=== PATIENT | male | born 1940 | race Caucasian/White ===

== ENCOUNTER → 2023-04-10 | Outpatient (CLI) | payer OTHER ==
[~2023-04-10] MED LIST: ATOR40TA PO; ELIQUIS2.5 MG PO; JARDIANCE25 MG PO; LOSA25 PO; METF500 PO; METO100ER PO; MULVITA PO; POTA10T PO; TORS10 PO
[2023-04-10 13:46] LABS: Protein, Urine Quantitative <5.0 mg/dL (0.0-11.9)
== END ==
LOC: LAB SHORT 11:08 → LAB 11:08
PROVIDERS: Internal Medicine Nephrology
DX: N18.30 Chronic kidney disease, stage 3 unspecified (principal); N25.81 Secondary hyperparathyroidism of renal origin; E55.9 Vitamin D deficiency, unspecified; E78.00 Pure hypercholesterolemia, unspecified; R76.9 Abnormal immunological finding in serum, unspecified; R94.5 Abnormal results of liver function studies; R94.6 Abnormal results of thyroid function studies
CPT/HCPCS: 82043; 82570; 84156

== ENCOUNTER 2024-04-30 07:24 | Day surgery (SDC) | payer OTHER ==
[~2024-04-30] VITALS: Ht 185.4 cm; Wt 118.8 kg
[2024-04-30] VITALS (8 sets, daily range): BP systolic 107–158; BP diastolic 59–133
[~2024-04-30 07:24] MED LIST changes: +ACET500 PO; +TURMERIC500 M2 PO
[2024-04-30] MEDS ORDERED: ELIQUIS5 M2 PO (07:51)
[2024-04-30] MEDS ORDERED: ATOR20 PO (07:52)
[2024-04-30] MEDS ORDERED: OZEMPIC1 MG/0.72 SC (07:59)
[2024-04-30] MEDS ORDERED: BELSOMRA10 MG PO (08:01)
[2024-04-30] MEDS ORDERED: Carvedilol12.5 MG PO (08:01)
[2024-04-30] MEDS ORDERED: INSULANI SC (08:02)
[2024-04-30] MEDS ORDERED: NS 1,000 ML IV ONE ×2 (08:05→08:37)
[2024-04-30] MEDS ORDERED: Heparin Sodium 1000 Units/ML 10ML MDV ONE ×2 (08:05→08:37)
[2024-04-30] MEDS ORDERED: NS 250 ML IV ONE (08:05)
[2024-04-30] MEDS ORDERED: Verapamil HCL 2.5 MG/ML 2ML Injection ONE (08:05)
[2024-04-30] MEDS ORDERED: Nitroglycerin 2 MG/20 ML BTL ONE (08:06)
[2024-04-30] MEDS ORDERED: FentaNYL Citrate 50 MCG/ML 2 ML Injection ONE (08:37)
[2024-04-30] MEDS ORDERED: Midazolam HCl 1MG / ML 2ML Vial ONE (08:37)
--- NOTE | 2024-04-30 10:20 | NUR ---
pt back to recovery from lab. pt a&ox4. l radial site soft and non-tender per pt. no bleeding noted. pt given coffee by chloe palma.
[2024-04-30] MEDS ORDERED: BUME1 PO (10:25)
--- NOTE | 2024-04-30 10:44 | NUR ---
PT GIVEN FOOD BY DONIS DAMON. SCRIPT FAXED TO [facility].
--- NOTE | 2024-04-30 10:47 | NUR ---
DR WARD AT BEDSIDE DISCUSSING PROCEDURE AND FUTURE PLAN OF CARE W/ PT AND PTs DAUGHTER.
--- NOTE | 2024-04-30 11:14 | NUR ---
l radial site soft and non-tender per pt. no bleeding noted. brachial site soft and non-tender per pt. no bleeding noted.
--- NOTE | 2024-04-30 11:25 | NUR ---
2cc removed from tr band. site soft and non-tender per pt. no bleeding noted.
--- NOTE | 2024-04-30 11:36 | NUR ---
2cc removed from tr band. site soft and non-tender per pt. no blleding noted. brachial site soft and non-tender per pt. no bleeding ntoed.
--- NOTE | 2024-04-30 11:45 | NUR ---
tr band fully delfated. no bleeding noted. site soft and non-tender per pt.
--- NOTE | 2024-04-30 12:18 | NUR ---
pt ambulated to restroom and is now back in recliner. radial site soft and non-tender per pt. no bleeding noted. brachila site soft and non-tender per pt. no bleeding noted.
--- NOTE | 2024-04-30 12:43 | NUR ---
pt given dc instructions and verbalized understanding. iv out. pt changed. cloth dot, arm board, and sling applied. both brachial and radial sites soft and non-tender per pt. no bleeding noted. pt taken to [facility] via where daughter will drive pt home.
--- NOTE | 2024-04-30 13:02 | NUR ---
ekg sent to dr grier per request.
== END 2024-04-30 12:55 | disposition home or self-care (01) ==
LOC: MHTC 07:24
DX: I25.709 Atherosclerosis of coronary artery bypass graft(s), unspecified, with unspecified angina pectoris (principal); I35.0 Nonrheumatic aortic (valve) stenosis; E78.5 Hyperlipidemia, unspecified; I48.21 Permanent atrial fibrillation; J44.9 Chronic obstructive pulmonary disease, unspecified; I11.0 Hypertensive heart disease with heart failure; I50.9 Heart failure, unspecified; E13.9 Other specified diabetes mellitus without complications; Z79.01 Long term (current) use of anticoagulants; Z79.899 Other long term (current) drug therapy; Z79.84 Long term (current) use of oral hypoglycemic drugs; Z87.891 Personal history of nicotine dependence
CPT/HCPCS: 76937; 93456; 93457; 99152; 99153; C1769; C1894; J1644; J2250; J3010; J7030; J7050; Q9967